=== PATIENT | male | born 1940 | race African-American/Black ===

== ENCOUNTER 2017-04-25 23:00 | Emergency (ER) | payer MEDICARE, MEDICAID ==
[~2017-04-25] VITALS: Ht 190.5 cm; Wt 72.0 kg
[2017-04-26 00:15] LABS: BASOPHILS % 0.5 % (0.0-2.0); EOSINOPHILS % 1.5 % (0.0-5.0); HEMATOCRIT. 37.1 % (42.0-52.0); HEMOGLOBIN. 12.5 g/dL (14.0-18.0); LYMPHOCYTES % 52.1 % (20.0-50.0); MEAN CORPUSCULAR HEMOGLOBIN 33.9 pg (28.0-32.0); MEAN CORPUSCULAR VOLUME 100.9 fL (80.0-94.0); MEAN PLATELET VOLUME 7.1 fl (7.4-10.4); MONOCYTES % 7.3 % (2.0-8.0); NEUTROPHILS % 38.6 % (40.0-76.0); PLATELET 223 x1000/uL (130-400); RED BLOOD CELL COUNT 3.68 mill/uL (4.7-6.1); RED CELL DISTRIBUTION WIDTH 13.4 % (11.6-14.6)
[2017-04-26 00:24] LABS: INR 1.2; PARTIAL THROMBOPLASTIN TIME 24.2 sec (23.4-31.0); PROTHROMBIN TIME 12.2 sec (9.4-11.6)
[2017-04-26 00:29] LABS: CHLORIDE 105 mEq/L (98-107); ETHANOL BLOOD < 10 mg/dL; TROPONIN I < 0.02 ng/mL (0.00-0.04)
[2017-04-26] MEDS ORDERED: ASPIRIN 81MG TABLET PO ONE (02:15)
[2017-04-26 04:04] VITALS: BP 103/62
== END 2017-04-26 05:46 | disposition left against medical advice (07) ==
LOC: EDBD 23:00 → ER 23:00 → EDBEDREQ 04-26 01:22 → EDBEDREQTM 04-26 01:22 → EDBEDREQDT 04-26 01:22 → ER 04-26 05:46
DX: R42 Dizziness and giddiness (principal); R53.1 Weakness; I10 Essential (primary) hypertension; F03.90 Unspecified dementia, unspecified severity, without behavioral disturbance, psychotic disturbance, mood disturbance, and anxiety
CPT/HCPCS: 36415; 70450; 71045; 80053; 83605; 83690; 83880; 84484; 85025; 85610; 85730; 87040; 93005; 99285; G0482; A4315